=== PATIENT | male | born 1975 | race Caucasian/White ===

== ENCOUNTER 2020-07-12 12:20 | Emergency (ER) | payer BC ==
--- NOTE | 2020-07-12 14:11 | EDM.PDOC ---
ED HPI GENERAL MEDICAL PROBLEM - General Chief Complaint: Chest Pain Stated Complaint: CHEST PAIN X 3 DAYS Time Seen by Provider: 07/12/20 12:29 Source of Information: Reports: Patient, RN Notes Reviewed History Limitations: Reports: No Limitations - History of Present Illness INITIAL COMMENTS - FREE TEXT/NARRATIVE: Patient is a 45-year-old male presenting to the emergency department with complaints of a 1 week history of intermittent right-sided chest pain. He reports that the pain comes and goes. For most of the day yesterday, it was not present, however after he got home later in the evening it did recur. He describes pain in the right lower chest as well as intermittent pain in his right back. 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 He has not taken anything for pain. Denies any shortness of breath. Pain does not worsen with deep breathing. Right Middle Chest Pain Score (Numeric/FACES): 8 - Related Data Allergies Allergy/AdvReac Type Severity Reaction Status Date / Time No Known Allergies Allergy Verified 07/12/20 12:37 Home Meds: Home Meds Allopurinol [Zyloprim] 300 mg PO DAILY 07/12/20 [History] Omeprazole Magnesium [Prilosec Otc] 20 mg PO DAILY 07/12/20 [History] predniSONE [Prednisone] 20 mg PO ASDIRECTED #15 tablet 07/12/20 [Rx] Past Medical History Gastrointestinal History: Reports: GERD Musculoskeletal History: Reports: Gout Social & Family History - Tobacco Use Tobacco Use Status *Q: Current Every Day Tobacco User Years of Tobacco use: 10 Packs/Tins Daily: 1.5 - Recreational Drug Use Recreational Drug Use: No ED ROS GENERAL - Review of Systems Review Of Systems: See Below Constitutional: Reports: No Symptoms HEENT: Reports: No Symptoms Respiratory: Reports: No Symptoms Cardiovascular: Reports: Chest Pain. Denies: Dyspnea on Exertion, Lightheadedness, Palpitations, Syncope Endocrine: Reports: No Symptoms GI/Abdominal: Reports: No Symptoms : Reports: No Symptoms Musculoskeletal: Reports: No Symptoms Skin: Reports: No Symptoms Neurological: Reports: No Symptoms Psychiatric: Reports: No Symptoms Hematologic/Lymphatic: Reports: No Symptoms Immunologic: Reports: No Symptoms ED EXAM, GENERAL - Physical Exam Exam: See Below Exam Limited By: No Limitations General Appearance: Alert, WD/WN, No Apparent Distress Respiratory/Chest: No Respiratory Distress, Lungs Clear, Normal Breath Sounds, No Accessory Muscle Use, Chest Non-Tender Cardiovascular: Normal Peripheral Pulses, Regular Rate, Rhythm, No Edema, No Gallop, No JVD, No Murmur, No Rub Neurological: Alert, Oriented, CN II-XII Intact, Normal Cognition, Normal Gait, Normal Reflexes, No Motor/Sensory Deficits Psychiatric: Normal Affect, Normal Mood Skin Exam: Warm, Dry, Intact, Normal Color, No Rash #1 Interpretation EKG Date: 07/12/20 Time: 12:54 Rhythm: NSR Rate (Beats/Min): 60 [place]: Normal P-Wave: Present QRS: Normal ST-T: Normal QT: Normal EKG Interpretation Comments: EKG interpreted by Dr. Fani MD. Course - Vital Signs Last Recorded V/S: Last Vital Signs Temp 98.5 F 07/12/20 12:36 Pulse 63 07/12/20 12:36 Resp 16 07/12/20 12:36 BP 141/103 H 07/12/20 12:36 Pulse Ox 97 07/12/20 12:36 - Orders/Labs/Meds Labs: Laboratory Tests 07/12/20 07/12/20 07/12/20 Range/Units 12:52 12:52 12:52 WBC 7.11 (4.23-9.07) K/mm3 RBC 4.67 (4.63-6.08) M/mm3 Hgb 14.8 (13.7-17.5) gm/dl Hct 43.4 (40.1-51.0) % MCV 92.9 H (79.0-92.2) fl MCH 31.7 (25.7-32.2) pg MCHC 34.1 (32.2-35.5) g/dl RDW Std Deviation 43.0 (35.1-43.9) fL Plt Count 198 (163-337) K/mm3 MPV 11.2 (9.4-12.3) fl Neut % (Auto) 66.7 (34.0-67.9) % Lymph % (Auto) 21.4 L (21.8-53.1) % [place] % (Auto) 8.6 (5.3-12.2) % Eos % (Auto) 2.5 (0.8-7.0) Baso % (Auto) 0.7 (0.1-1.2) % Neut # (Auto) 4.74 (1.78-5.38) K/mm3 Lymph # (Auto) 1.52 (1.32-3.57) K/mm3 [place] # (Auto) 0.61 (0.30-0.82) K/mm3 Eos # (Auto) 0.18 (0.04-0.54) K/mm3 Baso # (Auto) 0.05 (0.01-0.08) K/mm3 D-Dimer, Quantitative 0.20 (0.19-0.50) mg/L Sodium 143 (136-145) mEq/L Potassium 3.9 (3.5-5.1) mEq/L Chloride 107 (98-107) mEq/L Carbon Dioxide 26 (21-32) mEq/L Anion Gap 13.9 (5-15) BUN 15 (7-18) mg/dL Creatinine 0.7 (0.7-1.3) mg/dL Est Cr Clr Drug Dosing 157.60 mL/min Estimated GFR (MDRD) > 60 (>60) mL/min BUN/Creatinine Ratio 21.4 H (14-18) Glucose 112 H (70-99) mg/dL Calcium 8.6 (8.5-10.1) mg/dL Total Bilirubin 0.5 (0.2-1.0) mg/dL AST 20 (15-37) U/L ALT 42 (16-63) U/L Alkaline Phosphatase 66 (46-116) U/L Troponin I 0.026 (0.00-0.056) ng/mL Total Protein 7.0 (6.4-8.2) g/dl Albumin 3.7 (3.4-5.0) g/dl Globulin 3.3 gm/dL Albumin/Globulin Ratio 1.1 (1-2) - Re-Assessments/Exams Free Text/Narrative Re-Assessment/Exam: 07/12/20 14:50 Patient's work-up was found to be unremarkable. EKG shows a normal sinus rhythm at 60 with no evidence of ischemia. Blood work, D-dimer, and troponin are all normal. Chest x-ray shows no acute abnormalities. Discussed with patient that his pain is likely musculoskeletal in nature. I will put him on a course of prednisone. Discussed if he continues to have the symptoms intermittently, would recommend follow-up in the clinic to have a complete physical with possibility of stress testing in the future. He verbalized understanding of this. Discharge instructions as documented. Departure - Departure Time of Disposition: 14:50 Disposition: Home, Self-Care 01 Condition: Good Clinical Impression: Atypical chest pain Prescriptions: predniSONE [Prednisone] 20 mg PO ASDIRECTED #15 tablet Instructions: Chest Wall Pain, [id number] Referrals: PCP,None [Primary Care Provider] - Forms: ED Department Discharge Additional Instructions: You were seen in the emergency department today for intermittent right-sided chest pain over the course of last week. Work-up included blood work, EKG of your heart, chest x-ray. Results of your work-up were found to be normal. You are not having a heart attack and that you do not have a blood clot in your lungs. While the exact cause of your discomfort is unknown, the pain is likely musculoskeletal in nature. You have been started on prednisone which is an anti-inflammatory. Take this medication as prescribed. Recommend that you establish care with a primary care provider in the clinic for a complete physical as well as possibly stress testing. If you should experience any new or worsening symptoms of concern, please not hesitate to return to the emergency department for reevaluation. Sepsis Event Note (ED) - Evaluation Sepsis Screening Result: No Definite Risk
--- NOTE | 2020-07-13 08:08 | CR ---
Chest: PA and lateral views of the chest were obtained. Comparison: No prior chest imaging is available. Heart size and mediastinum are normal. Lungs are clear with no acute parenchymal change. No acute osseous abnormality is appreciated. Impression: 1. Nothing acute is seen on 2 view chest x-ray. Diagnostic code #1
== END 2020-07-12 14:55 | disposition home or self-care (01) ==
LOC: JD.ED 12:20
DX: R07.89 Other chest pain (principal); K21.9 Gastro-esophageal reflux disease without esophagitis; Z79.899 Other long term (current) drug therapy; Z72.0 Tobacco use
CPT/HCPCS: 36415; 71046; 71046-26; 80053; 84484; 85025; 85379; 93005; 93010; 99284; 99285-25

== ENCOUNTER 2021-04-05 13:25 | Day surgery (SDC) | payer BC ==
[2021-04-05] MEDS ORDERED: Midazolam 1 MG/ML 2 ML SDV ONE (16:28)
[2021-04-05] MEDS ORDERED: fentaNYL 100 MCG/2 ML SDV ONE (16:28)
[2021-04-05] MEDS ORDERED: Propofol 200 MG/20 ML SDV ONE (16:28)
[2021-04-05] MEDS ORDERED: Bupivacaine 0.5% 30 ML SDV ONE (16:51)
[2021-04-05] MEDS ORDERED: Ketamine 500 mg/10 ML MDV ONE (17:01)
[2021-04-05] MEDS ORDERED: Dexmedetomidine 200 MCG/2 ML SDV ONE (17:26)
[2021-04-05] MEDS ORDERED: Ondansetron 4 MG/2 ML SDV ONE (17:36)
[2021-04-05] MEDS ORDERED: Ketorolac 30 MG/ML SDV ONE (18:00)
[2021-04-05] MEDS ORDERED: oxyCODONE 5 MG Tab PO ONE (18:42)
== END 2021-04-05 19:19 | disposition home or self-care (01) ==
LOC: JD.SDS 13:25 → JD.ED 13:25 → EDSTATUS 16:04 → JD.SDS 19:19
PROVIDERS: ATTEND Nurse Practitioner Family
DX: K61.1 Rectal abscess (principal); K64.4 Residual hemorrhoidal skin tags; K21.9 Gastro-esophageal reflux disease without esophagitis; M10.9 Gout, unspecified; U07.1 COVID-19; Z87.891 Personal history of nicotine dependence
CPT/HCPCS: 36415; 46040; 80053; 85025; 87070; 87075; 87205; 87635; 99284; A9270; J1885; J2250; J2405; J2704; J3010; J3490; 00902; 87077; 87186; U0002

== ENCOUNTER 2021-04-07 10:20 | Day surgery (SDC) | payer BC ==
[~2021-04-07 10:20] MED LIST: Lactated Ringers 1,000 ML IV SCH
[2021-04-07] MEDS ORDERED: Sodium Chloride 0.9% 10 ML Syringe FLUSH PRN (11:04)
[2021-04-07] MEDS ORDERED: fentaNYL 100 MCG/2 ML SDV ONE (11:14)
[2021-04-07] MEDS ORDERED: Midazolam 1 MG/ML 2 ML SDV ONE (11:15)
[2021-04-07] MEDS ORDERED: Sodium Chloride 0.9% 10 ML Syringe FLUSH SCH (21:00)
== END 2021-04-07 12:14 | disposition home or self-care (01) ==
LOC: JD.SDS 10:20
PROVIDERS: ATTEND Surgery
DX: Z48.00 Encounter for change or removal of nonsurgical wound dressing (principal); K61.0 Anal abscess; K21.9 Gastro-esophageal reflux disease without esophagitis; M10.9 Gout, unspecified; Z87.891 Personal history of nicotine dependence; Z79.899 Other long term (current) drug therapy
CPT/HCPCS: 15852; J2250; J3010; J7120; 00400

== ENCOUNTER → 2021-04-08 | Day surgery (SDC) | payer BC ==
[~2021-04-08] MED LIST changes: +Lidocaine 1%/Sod Bicarbonate in NS 8.4% 1 ML Syringe IDERM PRN; +Midazolam 1 MG/ML 2 ML SDV ONE; +Sodium Chloride 0.9% 10 ML Syringe FLUSH PRN; +Sodium Chloride 0.9% 10 ML Syringe FLUSH SCH
== END | disposition home or self-care (01) ==
LOC: JD.SDS 12:36
PROVIDERS: ATTEND Surgery
DX: Z48.00 Encounter for change or removal of nonsurgical wound dressing (principal); K61.0 Anal abscess; K21.9 Gastro-esophageal reflux disease without esophagitis; M10.9 Gout, unspecified; Z87.891 Personal history of nicotine dependence; Z79.899 Other long term (current) drug therapy
CPT/HCPCS: 15852; J2250; J7120; 00400